=== PATIENT | female | born 1970 | race Hispanic/Latino ===

== ENCOUNTER 2018-05-11 11:31 | Emergency (ER) | payer SELFPAY ==
[2018-05-11 11:40] VITALS: BP 213/88
[2018-05-11] MEDS ORDERED: TORADOL IM ONE (12:08)
[2018-05-11] MEDS ORDERED: DELTASONE PO ONE (12:09)
--- NOTE | 2018-05-11 12:09 | Emergency Department Report ---
ED Back Pain/Injury HPI - General Chief Complaint: Back Pain/Injury Stated Complaint: LOWER BACK PAIN Time Seen by Provider: 05/11/18 12:04 Source: patient Limitations: No Limitations - History of Present Illness Complaint: other (AC PAIN; STATES SEEN AT [facility] FOR FALL OFF SCOOOTER XRAYS ARTHRITIS. 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 STOPPED USING CRUTCHES THAT [facility] GAVE HER. ) -: Gradual, month(s) Place: home Radiation: left leg, right leg Severity: moderate Quality: burning Consistency: intermittent Improves With: medication Worsens With: movement Associated Symptoms: denies: confusion, weakness, chest pain, numbness, difficulty walking, cough, difficulty urinating, diaphoresis, incontinence, fever/chills, constipation, headaches, abdominal pain, loss of appetite, malaise , nausea/vomiting, rash, seizure, shortness of breath, syncope - Related Data Previous Rx's Medication Instructions Recorded Last Taken Type Naproxen [Naprosyn] 500 mg PO BID PRN #20 tablet 05/11/18 Unknown Rx predniSONE [Deltasone] 50 mg PO QDAY #5 tab 05/11/18 Unknown Rx Allergies Allergy/AdvReac Type Severity Reaction Status Date / Time bupropion [From Wellbutrin] Allergy Hives Verified 05/11/18 11:38 Penicillins Allergy Hives Verified 05/11/18 11:38 pregabalin [From Lyrica] Allergy Hives Verified 05/11/18 11:38 ED Review of Systems ROS: Stated complaint: LOWER BACK PAIN Other details as noted in HPI Comment: All other systems reviewed and negative Constitutional: denies: chills, fever Eyes: denies: eye pain ENT: denies: throat pain Respiratory: denies: cough Cardiovascular: denies: palpitations Endocrine: denies: excessive sweating Gastrointestinal: denies: vomiting Genitourinary: denies: urgency, dysuria, frequency, hematuria Musculoskeletal: back pain. denies: joint swelling, arthralgia Skin: denies: rash, lesions Neurological: denies: headache, weakness Psychiatric: denies: anxiety, depression Hematological/Lymphatic: denies: easy bleeding ED Past Medical Hx - Past Medical History Hx Hypertension: Yes Additional medical history: chronic back pain - Surgical History Additional Surgical History: tubal ligation - Social History Smoking Status: Current Every Day Smoker Substance Use Type: None - Medications Home Medications: Home Medications Medication Instructions Recorded Confirmed Last Taken Type Naproxen [Naprosyn] 500 mg PO BID PRN #20 tablet 05/11/18 Unknown Rx predniSONE [Deltasone] 50 mg PO QDAY #5 tab 05/11/18 Unknown Rx ED Physical Exam - General Limitations: No Limitations General appearance: alert - Head Head exam: Present: atraumatic - Eye Eye exam: Present: normal appearance - ENT ENT exam: Present: mucous membranes moist - Neck Neck exam: Present: normal inspection - Respiratory Respiratory exam: Present: normal lung sounds bilaterally. Absent: respiratory distress - Cardiovascular Cardiovascular Exam: Present: regular rate - GI/Abdominal GI/Abdominal exam: Present: soft - Rectal Rectal exam: Present: deferred - Extremities Exam Extremities exam: Present: normal inspection - Back Exam Back exam: Present: normal inspection, full ROM, tenderness (L LUMBAR PARASPINAL PAIN. NO PAIN OVER VERTEBRAE). Absent: CVA tenderness (R), CVA tenderness (L) - Expanded Back Exam Expanded Back exam: Absent: saddle anesthesia Back exam: Positive Straight Leg Raise: Left, Right - Neurological Exam Neurological exam: Present: alert, oriented X3, CN II-XII intact, normal gait, reflexes normal - Psychiatric Psychiatric exam: Present: normal affect, normal mood, anxious - Skin Skin exam: Present: warm, dry, intact, normal color. 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 ED Disposition Clinical Impression: Back pain, Sciatic leg pain, Hypertension, Chronic pain Disposition: DC- TO HOME OR SELFCARE Is pt being admited?: No Does the pt Need Aspirin: No Condition: Stable Instructions: Lumbar Radiculopathy (ED) Additional Instructions: REST STRETCHING CONTINUE HOME FLEXERIL SEE ORTHO FOR PAIN CONTROL WARM COMPRESSES MAY HELP WITH PAIN Referrals: PRIMARY CARE, [Primary Care Provider] - 3-5 Days CRUZ FARIAS MD [Staff Physician] - 3-5 Days Time of Disposition: 12:19
== END 2018-05-11 12:32 | disposition home or self-care (01) ==
LOC: ED 11:31
DX: M54.40 Lumbago with sciatica, unspecified side (principal); G89.29 Other chronic pain; I10 Essential (primary) hypertension; F17.200 Nicotine dependence, unspecified, uncomplicated; Z98.51 Tubal ligation status; Z88.0 Allergy status to penicillin; Z88.6 Allergy status to analgesic agent; Z88.8 Allergy status to other drugs, medicaments and biological substances
CPT/HCPCS: 96372; 99282; J1885; J7512